=== PATIENT | female | born 1940 ===

== ENCOUNTER 2023-04-03 15:03 | Outpatient (REF) | payer BC, SELFPAY ==
[2023-04-04 08:01] LABS: HIV AB/AG Nonreactive (Nonreactive); HIV Num 1 0.06 S/CO (0.00-0.99); ~HepC Num1 1.07 S/CO (0.00-0.79); ~Hepatitis C Antibody Reactive (Nonreactive)
== END 2023-04-03 15:04 | disposition home or self-care (01) ==
LOC: HO.LNP 15:03
PROVIDERS: Visit Provider Ophthalmology
DX: T14.8XXD Other injury of unspecified body region, subsequent encounter (principal); W46.0XXD Contact with hypodermic needle, subsequent encounter
CPT/HCPCS: 86803; 87389